=== PATIENT | male | born 1945 | race Caucasian/White ===

== ENCOUNTER 2018-01-21 17:34 | Emergency (ER) | payer MEDICARE, MEDICAID ==
[~2018-01-21] VITALS: Ht 175.3 cm; Wt 38.4 kg
[~2018-01-21 17:34] MED LIST: AMLO5TAB16 PO; ASPI-1009 PO; ATOR10TA PO; CITA-278 PO; HYDR1TAB PO; LEVE10002 PO; [UNRECOGNIZED DRUG - CODE] INH
[2018-01-21 18:06] VITALS: BP 110/40
== END 2018-01-21 20:01 | disposition left against medical advice (07) ==
LOC: ER 17:35
DX: J02.9 Acute pharyngitis, unspecified (principal); R22.32 Localized swelling, mass and lump, left upper limb; Z53.21 Procedure and treatment not carried out due to patient leaving prior to being seen by health care provider